=== PATIENT | male | born 1980 ===

== ENCOUNTER → 2023-02-05 | Day surgery (SDC) | payer OTHER ==
[~2023-02-05] VITALS: Ht 175.3 cm; Wt 88.5 kg
[~2023-02-05] MED LIST: TRAMADOL HCL50 MG PO
== END | disposition home or self-care (01) ==
LOC: ADM 01-30 11:15 → CIR.AMB 07:29
PROVIDERS: ATTEND Surgery
DX: N43.3 Hydrocele, unspecified (principal); Z20.822 Contact with and (suspected) exposure to COVID-19